=== PATIENT | male | born 1990 | race Caucasian/White ===

== ENCOUNTER 2017-10-01 13:23 | Emergency (ER) | payer OTHER ==
[~2017-10-01] VITALS: Ht 190.5 cm; Wt 87.9 kg
[2017-10-01 13:27] VITALS: BP 134/84
[2017-10-01] MEDS ORDERED: DIPH,PERTUSS(ACELL),TET VAC/PF 0.5 ML IM-VACC ONE ×2 (14:00→14:49)
[2017-10-01] MEDS ORDERED: BACITRACIN ZINC OINT 500U/GM, 0.9 GM ONE (14:29)
[2017-10-01] MEDS ORDERED: LIDOCAINE-MPF 1%, 5ML INFIL ONE (14:30)
== END 2017-10-01 14:43 | disposition home or self-care (01) ==
LOC: ED 14:17
DX: S01.91XA Laceration without foreign body of unspecified part of head, initial encounter (principal); X58.XXXA Exposure to other specified factors, initial encounter; Y93.01 Activity, walking, marching and hiking; Y92.488 Other paved roadways as the place of occurrence of the external cause; Y99.8 Other external cause status
CPT/HCPCS: 12002; 90715; 96372